=== PATIENT | male | born 1995 | race Caucasian/White ===

== ENCOUNTER 2016-12-03 03:04 | Emergency (ER) | payer BC, OTHER ==
[2016-12-03] MEDS ORDERED: ACETAMINOPHEN 325 MG TABLET PO ONE (03:15)
[2016-12-03 05:48] LABS: APPEARANCE,URINE SLIGHTLY-CLOUDY; BILIRUBIN,URINE NEGATIVE (NEGATIVE); GLUCOSE, URINE NEGATIVE (NEGATIVE); KETONES,URINE NEGATIVE (NEGATIVE); LEUKOCYTE ESTERASE,URINE NEGATIVE (NEGATIVE); NITRITE,URINE NEGATIVE (NEGATIVE); PROTEIN,URINE NEGATIVE (NEGATIVE); URINE SPECIFIC GRAVITY 1.028
[2016-12-03] MEDS ORDERED: TRAMADOL HCL 50 MG TABLET PO ONE (06:58)
--- NOTE | 2016-12-03 06:58 | ER Document Report ---
ED General - General Chief Complaint: Urinary Problem Stated Complaint: ABDOMINAL PAIN TRAVEL OUTSIDE OF THE [place] IN LAST 30 DAYS: No - HPI Patient complains to provider of: lower inguinal pain Notes: Patient coming in for lower right abdominal pain in the inguinal region for the last 5 days. Denies any nausea vomiting diarrhea patient denies any fevers denies any trauma. Patient states pain is worse with moving around. States that he is not really having trouble urinating no penile discharge just pain. - Related Data Allergies/Adverse Reactions: No Known Allergies Allergy (Unverified 12/03/16 03:15) Past Medical History - Social History Smoking Status: Current Every Day Smoker Chew tobacco use (# tins/day): No Frequency of alcohol use: Occasional Drug Abuse: Marijuana Family History: Reviewed & Not Pertinent Patient has suicidal ideation: No Patient has homicidal ideation: No Renal/ Medical History: Denies: Hx Peritoneal Dialysis Surgical Hx: Negative Review of Systems - Review of Systems Constitutional: No symptoms reported EENT: No symptoms reported Cardiovascular: No symptoms reported Respiratory: No symptoms reported Gastrointestinal: Abdominal pain Genitourinary: No symptoms reported Male Genitourinary: No symptoms reported Musculoskeletal: No symptoms reported Skin: No symptoms reported Hematologic/Lymphatic: No symptoms reported Neurological/Psychological: No symptoms reported -: Yes All other systems reviewed and negative Physical Exam - Vital signs Vitals: Temp Pulse Resp BP Pulse Ox 98.5 F 90 18 129/78 H 100 12/03/16 03:09 12/03/16 03:09 12/03/16 03:09 12/03/16 03:09 12/03/16 03:09 Interpretation: Normal - General General appearance: Appears well, Alert - HEENT Head: Normocephalic, Atraumatic Eyes: Normal Pupils: PERRL - Respiratory Respiratory status: No respiratory distress Chest status: Nontender Breath sounds: Normal Chest palpation: Normal - Cardiovascular Rhythm: Regular Heart sounds: Normal auscultation Murmur: No - Abdominal Inspection: Normal Distension: No distension Bowel sounds: Normal Tenderness: Nontender Organomegaly: No organomegaly Notes: Evaluation patient's abdomen in the region does reveal sinus symptoms of possible hernia patient has pinpoint tenderness and a small bulge which is easily reducible upon palpation. Patient has bilateral cremaster reflexes no signs of herniated material within the scrotum. - Genitourinary Inspection: Normal Tenderness: Nontender Cremasteric reflex: Normal Scrotum: Normal - Back Back: Normal, Nontender - Extremities General upper extremity: Normal inspection, Nontender, Normal color, Normal ROM , Normal temperature General lower extremity: Normal inspection, Nontender, Normal color, Normal ROM , Normal temperature, Normal weight bearing. No: Nate's sign - Neurological Neuro grossly intact: Yes Cognition: Normal Orientation: AAOx4 Az Coma Scale Eye Opening: Spontaneous Az Coma Scale Verbal: Oriented Az Coma Scale Motor: Obeys Commands Az Coma Scale Total: 15 Speech: Normal Motor strength normal: LUE, RUE, LLE, RLE Sensory: Normal - Psychological Associated symptoms: Normal affect, Normal mood - Skin Skin Temperature: Warm Skin Moisture: Dry Skin Color: Normal Course - Re-evaluation Re-evalutation: 12/03/16 15:16 The patient presents with abdominal pain without signs of peritonitis or other life-threatening or serious etiology. The patient appears stable for discharge and has been instructed to return immediately if the symptoms worsen in any way , or in 8-12hr if not improved for re-evaluation. The patient has been instructed to return if the symptoms worsen or change in any way.. Examinations consistent with anal hernia. Patient's hernia looks to be easily reducible encouraged patient to follow-up with surgery. No signs of incarceration at this time or concerning etiology. - Vital Signs Vital signs: Temp Pulse Resp BP Pulse Ox 97.6 F 83 15 123/57 L 100 12/03/16 07:12 12/03/16 07:12 12/03/16 07:12 12/03/16 07:12 12/03/16 07:12 - Laboratory Laboratory results interpreted by me: 12/03/16 05:30 Urine Urobilinogen 4.0 H Discharge - Discharge Clinical Impression: Inguinal hernia Qualifiers: Obstruction and gangrene presence: without obstruction or gangrene Laterality: unilateral Recurrence: not specified as recurrent Qualified Code(s): K40.90 - Unilateral inguinal hernia, without obstruction or gangrene, not specified as recurrent Condition: Good Disposition: HOME, SELF-CARE Instructions: Hernia ([facility]), Observation for Appendicitis ([facility]) Additional Instructions: Your examination is consistent with a hernia. At this time is no signs of strangulation or any emergent criteria for surgery. I would highly recommend following up with the surgeons listed. Take medication as prescribed. Return to the ER symptoms worsen or if you develop a fever. You may continue to take Tylenol and Motrin for pain control. Prescriptions: Tramadol HCl [Ultram 50 mg Tablet] 50 mg PO ASDIR PRN #20 tablet PRN Reason: Forms: Return to Work Referrals: FRANSISCO ESPINOZA MD [ACTIVE STAFF] - Follow up as needed
[2016-12-03 07:14] LABS: CHLAM PCR NOT DETECTED (NOT DETECT)
[2016-12-03 07:21] VITALS: BP 123/57
== END 2016-12-03 07:12 | disposition home or self-care (01) ==
LOC: ER 03:04
DX: K40.90 Unilateral inguinal hernia, without obstruction or gangrene, not specified as recurrent (principal); R10.30 Lower abdominal pain, unspecified; F17.200 Nicotine dependence, unspecified, uncomplicated
CPT/HCPCS: 81001; 87491; 87591; 99284